=== PATIENT | male | born 1960 | race Two or more races ===

== ENCOUNTER 2025-03-01 18:39 | Emergency (ER) | payer MEDICARE, OTHER ==
[~2025-03-01] VITALS: Ht 167.6 cm; Wt 98.6 kg
[2025-03-01 19:55] LABS: Hematocrit 34.0 % (41.0-53.0); Hemoglobin 11.1 g/dL (13.5-17.5); Mean Corpuscular Hemoglobin 26.2 pg (28.0-32.0); Mean Corpuscular Volume 80.3 fL (80.0-100.0); Nucleated Red Blood Cells % 0.0 %
--- NOTE | 2025-03-01 20:00 | DVH ---
CLINICAL HISTORY: headache, HTN TECHNIQUE: Helical imaging carried out from skull base to vertex without intravenous contrast. This e xam was performed according to our departmental dose optimization program. Up-to-date CT equipment an d radiation dose reduction techniques are utilized as appropriate. 54.45 CTDIVol: 54.45 mGy DLP: 981.74 mGy-cm WID: COMPARISON: None FINDINGS: The ventricles and subarachnoid spaces are normal in size and configuration. There is no midline hollis ft or mass effect. The crandall white matter interfaces are maintained. The basal cisterns are patent. Th ere is no evidence of acute intracranial hemorrhage or extra-axial fluid collection. The mastoid air cells and visualized paranasal sinuses are well-aerated aside from a mucous retention cyst or polyp i n the right maxillary sinus and trace mucosal thickening of the left maxillary sinus. IMPRESSION: 1. No acute intracranial abnormality.
[2025-03-01 20:01] LABS: Chloride 105 mmol/L (98-107); Potassium 4.2 mmol/L (3.5-5.1); Sodium 137 mmol/L (136-145)
[2025-03-01 20:02] LABS: Anion Gap 10 (5-15); Carbon Dioxide 22 mmol/L (20-31)
[2025-03-01 20:05] LABS: Calcium 8.6 mg/dL (8.7-10.4)
[2025-03-01 20:07] LABS: BUN/Creatinine Ratio 16.5 (10.0-20.0); Blood Urea Nitrogen 15 mg/dL (9-23)
[2025-03-01 20:16] LABS: Glucose 117 mg/dL (74-106)
--- NOTE | 2025-03-01 20:27 | ED.PDOC ---
History of Present Illness HPI Comments 64 y/o obese M, with a Hx of hypertension and VT, presents with daughter for c/c of hypertension. Patient reports on checking and noticing his blood pressure being elevated, this evening, at home, with a systolic pressure in the 190's, after he began feeling abdominal discomfort. Denies any chest pain, shortness of breath, or further acute symptoms. Chief Complaint: High Blood Pressure Time Seen by MD: 20:00 Reviewed Notes: Nurses Notes, Medications, Allergies Allergies: Coded Allergies: Tetracycline (Verified Allergy, Unknown, 03/01/25) Home Meds Active Scripts Cefdinir (Cefdinir) 300 Mg Cap, 1 CAP PO BID for 10 Days, #20 CAP Prov:FREDY LOYA MD 03/01/25 Information Source: Patient, Relative Mode of Arrival: Wheelchair Severity: Moderate Timing: Hours Duration: Since onset Prehospital treatment: None Past Medical History PAST MEDICAL HISTORY: HTN, [place] Surgical History: Denies all surgeries Family History Family History: Unknown Social History Smoker: Non-Smoker Alcohol: Denies ETOH Use Drugs: Denies Drug Use Lives In: Home All Other Systems: Reviewed and Negative (Comprehensive review of systems are n egative unless stated in HPI) Physical Exam General Appearance: Mild Distress, Obese HEENT: Normal ENT Inspection, Pharynx Normal, TMs Normal Neck: Full Range of Motion, Non-Tender, Normal, Normal Inspection Respiratory: Chest Non-Tender, Lungs Clear, No Accessory Muscle Use, No Resp iratory Distress, Normal Breath Sounds Cardiovascular: No Edema, No JVD, No Murmur, No Gallop, Normal Peripheral Pulses, Regular Rate/Rhythm Breast Exam: Deferred Gastrointestinal: No Organomegaly, Non Tender, No Pulsatile Mass, Normal Bowel Sounds, Soft Genitalia: Deferred Pelvic: Deferred Rectal: Deferred Extremities: No calf tenderness, Normal capillary refill, Normal inspection, Normal range of motion, Non-tender, No pedal edema Musculoskeletal : Apperance: Normal Neurologic: Alert, manager skilled II-XII nml as Tested, No Motor Deficits, Normal Affect, Normal Mood, No Sensory Deficits Cerebellar Function: Normal Reflexes: Normal Skin: Dry, Normal Color, Warm Lymphatic: No Adenopathy Was a procedure done? Was a procedure done?: No Differential Dx Considerations may include: hypertension, medication noncompliance, gastritis, gastroenteritis, GERD, among others X-Ray, Labs, Meds, VS Vital Signs Date Time Temp Pulse Resp B/P (MAP) Pulse Ox O2 Delivery O2 Flow Rate FiO2 03/01/25 23:25 96 Room Air* 0 21 03/01/25 23:00 98.1 91 16 134/82 (99) 97 98.1 03/01/25 18:44 102.8 121 20 163/82 92 102.8 Lab Test 03/01/25 22:37 03/01/25 20:58 03/01/25 20:12 03/01/25 19:43 Range/Units Lactic Acid Level 1.3 1.3 0.4-2.0 mmol/L Troponin I High Sensitivity 40 39 38 </=54 ng/L White Blood Count 6.0 4.4-10.8 10^3/uL Red Blood Count 4.24 L 4.5-5.90 10^6/uL Hemoglobin 11.1 L 13.5-17.5 g/dL Hematocrit 34.0 L 41.0-53.0 % Mean Corpuscular Volume 80.3 80.0-100.0 fL Mean Corpuscular Hemoglobin 26.2 L 28.0-32.0 pg Mean Corpuscular Hemoglobin Concent 32.6 32.0-36.0 g/dL Red Cell Distribution Width 19.2 H 11.8-14.3 % Platelet Count 184 140-450 10^3/uL Mean Platelet Volume 8.7 6.9-10.8 fL Neutrophils (%) (Auto) 79.4 37.0-80.0 % Lymphocytes (%) (Auto) 9.2 L 10.0-50.0 % Monocytes (%) (Auto) 10.0 0.0-12.0 % Eosinophils (%) (Auto) 0.6 0.0-7.0 % Basophils (%) (Auto) 0.8 0.0-2.0 % Neutrophils # (Auto) 4.8 1.6-8.6 10 ^3/uL Lymphocytes # (Auto) 0.6 0.4-5.4 10 ^3/uL Monocytes # (Auto) 0.6 0-1.3 10 ^3/uL Eosinophils # (Auto) 0 0-0.8 10 ^3/uL Basophils # (Auto) 0 0-0.2 10 ^3/uL Nucleated Red Blood Cells 0.0 % Sodium Level 137 136-145 mmol/L Potassium Level 4.2 3.5-5.1 mmol/L Chloride Level 105 98-107 mmol/L Carbon Dioxide Level 22 20-31 mmol/L Anion Gap 10 5-15 Blood Urea Nitrogen 15 9-23 mg/dL Creatinine 0.91 0.700-1.30 mg/dL Glomerular Filtration Rate Calc 93 >90 mL/min BUN/Creatinine Ratio 16.5 10.0-20.0 Serum Glucose 117 H 74-106 mg/dL Calcium Level 8.6 L 8.7-10.4 mg/dL Current Medications Medications (Trade) Dose Ordered Sig/Germaine Route Start Time Stop Time Status Last Admin Acetaminophen (Tylenol Tablet) 1,000 mg ONCE ONCE PO 03/01/25 20:30 03/01/25 20:31 DC 03/01/25 23:15 Amoxicillin/ Clavulanate Potassium (Augmentin Tablet) 875 mg ONCE ONCE PO 03/01/25 22:45 03/01/25 22:46 DC 03/01/25 23:15 [place] [id number] Ph: [phone] DIAGNOSTIC IMAGING Diagnostic Imaging Report : [id number] Signed PATIENT: SELIN LOWE ACCT: [id number] UNIT: [id number] : 1960 LOC: ER ROOM / BED: / AGE / SEX: 64 / M ADM STATUS: REG ER SERVICE 22 ORDERING PHYSICIAN: FREDY LOYA MD PROCEDURE(s): HWOCT - HEAD WITHOUT CONTRAST REASON: headache, HTN ORDER NUMBER(s): [id number], ACCESSION NUMBER(s): [id number] CLINICAL HISTORY: headache, HTN TECHNIQUE: Helical imaging carried out from skull base to vertex without intravenous contrast. This exam was performed according to our departmental dose optimization program. Up-to-date CT equipment and radiation dose reduction techniques are utilized as appropriate. 54.45 CTDIVol: 54.45 mGy DLP: 981.74 mGy-cm WID: COMPARISON: None FINDINGS: The ventricles and subarachnoid spaces are normal in size and configuration. There is no midline shift or mass effect. The crandall white matter interfaces are maintained. The basal cisterns are patent. There is no evidence of acute intracranial hemorrhage or extra-axial fluid collection. The mastoid air cells and visualized paranasal sinuses are well-aerated aside from a mucous retention cyst or polyp in the right maxillary sinus and trace mucosal thickening of the left maxillary sinus. IMPRESSION: 1. No acute intracranial abnormality. ATED BY: JUAREZ MORALES MD DICTATED DATE/TIME: 03/01/251956 SIGNED BY: JUAREZ MORALES MD SIGNED DATE/TIME: 03/01/251956 CC: Time of 1ST Reevaluation: 20:30 Reevaluation 1ST: Unchanged Patient Education/Counseling: Diagnosis, Treatment Family Education/Counseling: Diagnosis, Treatment SEPSIS Sepsis Screen Date sepsis recognized/suspect: Mar 01, 2025 Time Sepsis recognized/suspect: 1843 Recent Procedure: No On Antibiotic Therapy: No Respiratory Rate >20: No Heart Rate >90: Yes Temp<36 C (96.8 F) or >38.3 C: Yes SBP <90 or MAP <65 mmHG: No New Acute Mental Status Change: No Is the patient on CPAP, BIPAP,: No Physician Orders Electrocardigram (03/01/25 19:23) Head Without Contrast (03/01/25 19:23) Blood Culture (03/01/25 20:19) Urinalysis (03/01/25 20:19) Covid19 Antigen Annabella (03/01/25 ) Rapid Influenza A&B (03/01/25 20:19) Chest Xray 1 View (03/01/25 20:19) Vital Signs Date Time Temp Pulse Resp B/P (MAP) Pulse Ox O2 Delivery O2 Flow Rate FiO2 03/01/25 23:25 96 Room Air* 0 21 03/01/25 23:00 98.1 91 16 134/82 (99) 97 98.1 03/01/25 18:44 102.8 121 20 163/82 92 102.8 Laboratory Tests Test 03/01/25 19:43 03/01/25 20:58 03/01/25 22:37 White Blood Count 6.0 10^3/uL (4.4-10.8) Lactic Acid Level 1.3 mmol/L (0.4-2.0) 1.3 mmol/L (0.4-2.0) Medications Medications Dose Ordered Sig/Germaine Route Start Time Stop Time Status Last Admin Dose Admin Acetaminophen 1,000 mg ONCE ONCE PO 03/01/25 20:30 03/01/25 20:31 DC 03/01/25 23:15 Amoxicillin/ Clavulanate Potassium 875 mg ONCE ONCE PO 03/01/25 22:45 03/01/25 22:46 DC 03/01/25 23:15 Departure 1 Departure Time of Disposition: 22:30 Impression: Primary Impression: Fever Disposition: HOME / SELF CARE / HOMELESS Condition: Stable e-Prescriptions Cefdinir (Cefdinir) 300 Mg Cap 1 CAP PO BID for 10 Days, #20 CAP Prov: FREDY LOYA MD 03/01/25 Discharged With: Self Critical Care Note Critical Care Time?: No Stability Stability form required: No Heart Score Heart Score: Heart Score Response (Comments) Value History N/A 0 EKG N/A 0 Age N/A 0 Risk Factors N/A 0 Troponin N/A 0 Total 0 I personally scribed for FREDY LOYA MD ([email or web address]) on 03/01/25 at 20:27. Electronically submitted by Ramiro Castro [email or web address]). FREDY LOYA MD Mar 01, 2025 20:27
--- NOTE | 2025-03-01 20:43 | DVH ---
CHEST RADIOGRAPH Indication: SOB , fever Technique: Single frontal view of the chest was obtained Comparison: None FINDINGS: Lines and Tubes: None Lungs: No focal consolidation. Diffuse interstitial prominence. Pleura: No effusion. No pneumothorax. Cardiomediastinal contours: Heart size is within normal limits with mild atherosclerotic calcificatio n and uncoiling of the aorta. Bones: No acute osseous abnormality. IMPRESSION: Pulmonary vascular congestion.
[2025-03-01] MEDS ORDERED: CEFD300C2 PO (22:45)
[2025-03-01 23:00] VITALS: BP 134/82; PULSE 91; RESP 16; TEMP 98.1
[2025-03-01] MEDS: ACETAMINOPHEN 325 MG TAB PO ONE (23:15)
[2025-03-01] MEDS: AMOXICILLIN/CLAVUL 875 MG TAB PO ONE (23:15)
[2025-03-01 23:25] VITALS: O2SAT 96
== END 2025-03-01 23:30 | disposition home or self-care (01) ==
LOC: ER 18:39
DX: R50.9 Fever, unspecified (principal); I25.2 Old myocardial infarction; R42 Dizziness and giddiness; Z88.1 Allergy status to other antibiotic agents; Z79.899 Other long term (current) drug therapy
CPT/HCPCS: 36415; 70450; 71045; 80048; 83605; 84484; 85025; 87040

== ENCOUNTER 2025-03-23 20:18 | Emergency (ER) | payer MEDICARE ==
[~2025-03-23] VITALS: Ht 167.6 cm; Wt 95.4 kg
[~2025-03-23 20:18] MED LIST: CEFD300C2 PO
[2025-03-23 20:21] VITALS: BP 139/75; PULSE 95; RESP 18; TEMP 98.4; O2SAT 96
--- NOTE | 2025-03-23 21:56 | DVH ---
CLINICAL INDICATION: right knee pain TECHNIQUE: XYXY R KNEE 3V XRAY Comparison: XY CHEST XRAY 1 VIEW on DOS: 03/01/25 FINDINGS/IMPRESSION: : There is no evidence of acute fracture or dislocation. Moderate tricompartmental degenerative changes. Large knee joint effusion.
--- NOTE | 2025-03-23 23:18 | DVH ---
Right lower extremity venous duplex Clinical History: right leg pain Comparison: XY R KNEE 3V XRAY on DOS: 03/23/25 Technique: Duplex Doppler evaluation of the deep venous system of the right lower extremity from the common femoral vein to the popliteal vein including color Doppler and spectral/pulsed waveform analysis was performed. Findings: The common femoral vein demonstrates appropriate compressibility and waveform variability. There is compressibility/patency of the great saphenous vein at the proximal thigh. The femoral vein demonstrates appropriate compressibility and waveform variability. The deep femoral vein demonstrates appropriate compressibility and waveform variability. The popliteal vein demonstrates appropriate compressibility and waveform variability. There is normal compressibility at the tibioperoneal trunk. Prominent right groin lymph node measuring 3.6 cm, likely reactive. Complex right knee joint effusion. Impression: No right femoropopliteal venous thrombosis. Complex right knee joint effusion.
[2025-03-23] MEDS ORDERED: ACE3T PO (23:34)
--- NOTE | 2025-03-23 23:34 | ED.PDOC ---
Musculoskeletal HPI Comments 64-year-old male presents to ER with complaints of right knee pain x1 day. Patient with past medical history significant for chronic right knee pain reports that he started experiencing worsening right knee pain/swelling to right knee while getting out of the shower this morning. Denies any trauma/falls and rates his current pain a 9/10 to right knee without radiation. States he has not been able to bear weight on right leg due to right knee pain and presents to ER in wheelchair, in mild distress. Denies fever, body aches, chills, night sweats, further skin changes, numbness/tingling, hip pain or any further symptoms/complaints Chief Complaint: Lower Extremity Time Seen by MD: 21:15 Primary Care Provider: UNKNOWN Reviewed Notes: Nurses Notes, Medications, Allergies Allergies: Coded Allergies: Tetracycline (Verified Allergy, Unknown, 03/01/25) Home Meds Active Scripts Acetaminophen W/ Codeine (Tylenol W/Cod #3) 1 Tab Tb, 1 TAB PO Q6HPRN, #10 TAB 0 Refills Prov:PRIYANK EVANS 03/23/25 Cefdinir (Cefdinir) 300 Mg Cap, 1 CAP PO BID for 10 Days, #20 CAP Prov:FREDY LOYA MD 03/01/25 Information Source: Patient Mode of Arrival: Ambulatory Past Medical History PAST MEDICAL HISTORY: HTN, [place] Past Medical History (Other): Chronic right knee pain Surgical History: Denies all surgeries Family History Family History: Unknown Social History Smoker: Non-Smoker Alcohol: Denies ETOH Use Drugs: Denies Drug Use Lives In: Home Constitutional: denies: chills, diaphoresis, fatigue, fever, malaise, sweats, weakness, others EENTM: denies: blurred vision, double vision, ear bleeding, ear discharge, ear drainage, ear pain, ear ringing, eye pain, eye redness, hearing loss, mouth pain, mouth swelling, nasal discharge, nose bleeding, nose congestion, nose pain, photophobia, tearing, throat pain, throat swelling, voice changes, others Respiratory: denies: cough, hemoptysis, orthopnea, SOB at rest, shortness of breath, SOB with excertion, stridor, wheezing, others Cardiovascular: denies: chest pain, dizzy spells, diaphoresis, Dyspnea on exertion, edema, irregular heart beat, left arm pain, lightheadedness, palpitations, PND, syncope, others Gastrointestinal: denies: abdomen distended, abdominal pain, blood streaked bowels, constipated, diarrhea, dysphagia, difficulty swallowing, hematemesis, melena, nausea, poor appetite, poor fluid intake, rectal bleeding, rectal pain, vomiting, others Genitourinary: denies: burning, dysuria, flank pain, frequency, hematuria, incontinence, penile discharge, penile sore, pain, testicle pain, testicle swelling, urgency, others Neurological: denies: dizziness, fainting, headache, left sided numbness, left sided weakness, numbness, paresthesia, pre-existing deficit, right sided numbness, right sided weakness, seizure, speech problems, tingling, tremors, wea kness, others Musculoskeletal: reports: others (As stated in HPI) Integumetry: reports: others (As stated in HPI) Allergic/Immunocompromised: denies: Difficulty Healing, Frequent Infections, Hives, Itching, others Hematologic/Lymphatic: denies: anemia, blood clots, easy bleeding, easy bruising, swollen glands, others Endocrine: denies: excessive hunger, excessive sweating, excessive thirst, excessive urination, flushing, intolerance to cold, intolerance to heat, unexplained weight gain, unexplained weight loss, others Psychiatric: denies: anxiety, bipolar disorder, depression, hopeless, panic disorder, schizophrenia, sleepless, suicidal, others Physical Exam General Appearance: Mild Distress HEENT: PERRL/EOMI Neck: Full Range of Motion, Non-Tender, Normal Respiratory: Chest Non-Tender, Lungs Clear, No Accessory Muscle Use, No Respiratory Distress, Normal Breath Sounds Cardiovascular: No Murmur, No Gallop, Regular Rate/Rhythm Breast Exam: Deferred Gastrointestinal: NOT DONE Genitalia: Deferred Pelvic: Deferred Rectal: Deferred Extremities: No calf tenderness, Normal capillary refill Musculoskeletal : Extremity Location: Knee (TTP/large amount of swelling noted to right anterior knee. No erythema/further skin changes noted. Patient able to bear minimum weight on right leg due to right knee pain. No other TTP to right lower extremity noted) Neurologic: Alert, No Motor Deficits, No Sensory Deficits Cerebellar Function: Normal Reflexes: Normal Skin: Dry, Normal Color, Warm Lymphatic: No Adenopathy Was a procedure done? Was a procedure done?: No Sedation Sedation?: No Differential Diagnosis EXT Differential Diagnosis: Cellulitis, Fracture, Dislocation, Septic, Neurovascular injury X-Ray, Labs, Meds, VS Vital Signs Date Time Temp Pulse Resp B/P (MAP) Pulse Ox O2 Delivery O2 Flow Rate FiO2 03/23/25 20:21 98.4 95 18 139/75 96 98.4 PATIENT: SELIN LOWE GACCT: [id number]: [id number] : 1960 LOC: ER ROOM / BED: / AGE / SEX: 64 / M ADM STATUS: REG ER SERVICE 14 ORDERING PHYSICIAN: PRIYANK EVANS PROCEDURE(s): RKN3 - R KNEE 3V XRAY REASON: right knee pain ORDER NUMBER(s): [id number], ACCESSION NUMBER(s): [id number] CLINICAL INDICATION: right knee pain TECHNIQUE: XYXY R KNEE 3V XRAY Comparison: XY CHEST XRAY 1 VIEW on DOS: 03/01/25 FINDINGS/IMPRESSION: : There is no evidence of acute fracture or dislocation. Moderate tricompartmental degenerative changes. Large knee joint effusion. ATED BY: DELONTE HIGUERA MD DICTATED DATE/TIME: 03/23/252153 SIGNED BY: DELONTE HIGUERA MD SIGNED DATE/TIME: 03/23/252153 CC: PATIENT: SELIN LOWE ACCT: [id number] UNIT: [id number] : 1960 LOC: ER ROOM / BED: / AGE / SEX: 64 / M ADM STATUS: REG ER SERVICE 14 ORDERING PHYSICIAN: PRIYANK EVANS PROCEDURE(s): RLDVT - RT Lower DVT REASON: right leg pain ORDER NUMBER(s): [id number], ACCESSION NUMBER(s): [id number] Right lower extremity venous duplex Clinical History: right leg pain Comparison: XY R KNEE 3V XRAY on DOS: 03/23/25 Technique: Duplex Doppler evaluation of the deep venous system of the right lower extremity from the common femoral vein to the popliteal vein including color Doppler and spectral/pulsed waveform analysis was performed. Findings: The common femoral vein demonstrates appropriate compressibility and waveform variability. There is compressibility/patency of the great saphenous vein at the proximal thigh. The femoral vein demonstrates appropriate compressibility and waveform variability. The deep femoral vein demonstrates appropriate compressibility and waveform variability. The popliteal vein demonstrates appropriate compressibility and waveform variability. There is normal compressibility at the tibioperoneal trunk. Prominent right groin lymph node measuring 3.6 cm, likely reactive. Complex right knee joint effusion. Impression: No right femoropopliteal venous thrombosis. Complex right knee joint effusion. ATED BY: DELONTE HIGUERA MD DICTATED DATE/TIME: 03/23/252314 SIGNED BY: DELONTE HIGUERA MD SIGNED DATE/TIME: 03/23/252314 CC: Right knee x-ray reviewed Right lower DVT ultrasound reviewed Breda 5/325 mg p.o. ordered Zofran 4 mg p.o. ordered Right knee immobilizer applied Crutches ordered, patient educated on proper use. Was advised to use at all times Patient neurovascularly intact and reported improvement in symptoms prior to discharge Advised on elevation and alternate ice on/off as needed for pain/swelling Advised to follow up with PCP and orthopedics in 1-2 days Patient verbalized understanding and agreeable with current plan of care Advised to return to ER immediately if symptoms worsen Images Reviewed?: Images reviewed and evaluated by me Time of 1ST Reevaluation: 23:02 Reevaluation 1ST: N/A Patient Education/Counseling: Diagnosis, Treatment, Prognosis, Need For Follow Up Family Education/Counseling: No Family Present Departure 1 Departure Time of Disposition: 23:32 Impression: Primary Impression: Effusion of knee joint right Additional Impression: Arthritis of knee, right Disposition: 01 HOME / SELF CARE / HOMELESS Condition: Stable e-Prescriptions Acetaminophen W/ Codeine (Tylenol W/Cod #3) 1 Tab Tb 1 TAB PO Q6HPRN, #10 TAB 0 Refills Prov: PRIYANK EVANS 03/23/25 Discharged With: Other (son) Critical Care Note Critical Care Time?: No Stability Stability form required: No Heart Score Heart Score: Heart Score Response (Comments) Value History N/A 0 EKG N/A 0 Age N/A 0 Risk Factors N/A 0 Troponin N/A 0 Total 0 PRIYANK EVANS Mar 23, 2025 23:34
[2025-03-23] MEDS: HYDROcodone-ACET 5/325MG TAB PO ONE (23:44)
[2025-03-23] MEDS: ONDANSETRON ODT 4 MG TAB PO ONE (23:52)
== END 2025-03-23 23:51 | disposition home or self-care (01) ==
LOC: ER 20:18
DX: M25.461 Effusion, right knee (principal); M17.11 Unilateral primary osteoarthritis, right knee; I10 Essential (primary) hypertension; Z88.1 Allergy status to other antibiotic agents
CPT/HCPCS: 29505; 73562; 93971; 99284; Q0162